=== PATIENT | male | born 1970 | race Caucasian/White ===

== ENCOUNTER → 2021-02-13 | Outpatient (CLI) | payer OTHER ==
[~2021-02-13] MED LIST: ASPIR 8181 MG PO; CLARITIN10 M2 PO; CLARITIN10 MG PO; ECOTRIN81 MG PO; FISH OIL 1,0001 EACH PO; FISH OIL PO; GABAPENTIN400 MG PO; HYDROCHLOROTHIA25 MG PO; IBUPROFEN800 MG PO; LEVOTHYROXINE50 MCG PO; LISINOPRIL-HCT1 EAC1 PO; METOPROLOL SUCC25 MG PO; NORCO 10-325 T1 EACH PO; PERCOCET 10-321 EACH PO; TOPROL XL25 MG PO; VIT D2 PO; ZOCOR80 MG PO
== END ==
LOC: HEART 5 02-02 07:30
DX: R06.02 Shortness of breath (principal); R94.39 Abnormal result of other cardiovascular function study
CPT/HCPCS: 78452; 93017; A9502; J2785

== ENCOUNTER → 2021-05-17 | Outpatient (CLI) | payer OTHER ==
[2021-05-18 08:14] LABS: ALPHA-1-ANTITRYPSIN, SERUM 111 mg/dL (101-187)
[2021-05-18 09:14] LABS: HBSAG SCREEN Negative (Negative); HEP A AB, IGM Negative (Negative); HEP B CORE AB, IGM Negative (Negative); HEP C VIRUS AB <0.1 (0.0-0.9)
[2021-05-18 14:14] LABS: MITOCHONDRIAL (M2) ANTIBODY <20.0 Units (0.0-20.0)
== END ==
LOC: CT 08:46
PROVIDERS: Internal Medicine Gastroenterology
DX: R74.8 Abnormal levels of other serum enzymes (principal); D18.03 Hemangioma of intra-abdominal structures; R94.5 Abnormal results of liver function studies
CPT/HCPCS: 36415; 80074; 80076; 82103; 82565; 82728; 83540; 83550; 84520; 86038

== ENCOUNTER → 2021-10-10 | Outpatient (CLI) | payer OTHER | LOC: CT 08:13 | DX: I71.2 Thoracic aortic aneurysm, without rupture (principal) | CPT/HCPCS: 36415; 71260; 82565; Q9967 ==